=== PATIENT | female | born 1975 | race African-American/Black ===

== ENCOUNTER 2022-01-14 19:23 | Emergency (ER) | payer BC, SELFPAY ==
[2022-01-14 19:28] VITALS: BP 136/70; PULSE 62; RESP 13; TEMP 36.1; O2SAT 98; BMI 38.0
--- NOTE | 2022-01-14 19:38 | EKG12_ITS ---
Test Reason : CP Blood Pressure : / mmHG Vent. Rate : 060 BPM Atrial Rate : 060 BPM P-R Int : 226 ms QRS Dur : 090 ms QT Int : 414 ms P-R-T Axes : 029 -03 019 degrees QTc Int : 414 ms Sinus rhythm with 1st degree A-V block Otherwise normal ECG Confirmed by LEON OLIVAREZ, JAKE ([id number]), web content editor MARIALUISA MEREDITH ([id number]) on 01/16/2022 9:42:03 AM Referred By: RU Confirmed By:JAKE QUINTERO MD
--- NOTE | 2022-01-14 19:41 | ED.VIS.CHEST ---
HPI History of Present Illness Chief Complaint: Chest Pain Informant: patient Onset/Context/Timing Onset: Hours (7-8) Activity at onset: gradual and onset Timing: Continuous Quality: Positive for - (Discomfort) Location: Left Chest (Occasionally radiating up the left side of neck and jaw but not currently doing so) Current Severity: Mild Maximum Severity: Moderate Worsened By: Nothing Relieved By: Nothing Associated Symptoms: Positive for Nausea and Dyspnea (mild); Negative for Vomiting, Diaphoresis, Cough, Fever, Lightheadedness and Palpitations Narrative Narrative: Patient with chest discomfort constantly for the past 7 or 8 hours, she states it is mild and left-sided has R10 describing it but it is discomfort nonpleuritic, she denies any palpitations or near syncope or syncope or leg pain or swelling, no history of DVT or PE. She never had this before and was concerned about it because of that and presents for evaluation. No history of heart disease. CVD Risk Factors: Positive for Hypertension; Negative for Diabetes, Hypercholesterolemia, Family History 1' </=55 and Smoking PE Risk Factors: Negative for Recent Travel/Surgery, Recent Immobilization, Prior DVT or PE, Cancer and OCP + Smoking + >/=35 [facility] Medical History Asthma Hypertension Hypothyroidism Sleep apnea Home Medications ergocalciferol (vitamin D2) [Vitamin D] 1 tab PO DAILY 11/07/16 [History Last Taken Unknown] levothyroxine 125 mcg PO DAILY 11/07/16 [History Last Taken Unknown] loratadine [Claritin] 1 tab PO DAILY PRN 11/07/16 [History Last Taken Unknown] multivitamin [Multiple Vitamins] 1 tab PO DAILY 11/07/16 [History Last Taken Unknown] hydrochlorothiazide 25 mg PO DAILY 01/14/22 [History Last Taken Unknown] pantoprazole 40 mg PO DAILY #30 tab 01/14/22 [Rx Last Taken Unknown] Allergy/AdvReac Type Severity Reaction Status Date / Time No Known Allergies Allergy Verified 01/14/22 19:25 Social History Smoking Status: Never smoker ROS ROS ED Constitutional Constitutional ED: Denies chills or fever(s) Eyes Eyes: Denies change in vision or diplopia ENT ENT ED: Denies rhinorrhea or sore throat Cardiovascular Cardiovascular: Reports as per HPI and chest pain; Denies palpitations Respiratory/Chest Respiratory/Chest: Reports dyspnea; Denies cough Gastrointestinal Gastrointestinal: Denies abdominal pain, diarrhea, nausea or vomiting Genitourinary Genitourinary ED: Denies dysuria or hematuria Musculoskeletal Musculoskeletal: Denies back pain or neck pain Integumentary Denies abscess or rash Neurologic Neurologic: Denies headache(s), paresthesias or weakness Psychiatric Psychiatric: Denies anxiety or suicidal thoughts EXAM Physical Exam Const Vital Signs: 01/14/22 19:28 01/14/22 19:35 01/14/22 19:46 Temperature 97 F L Temperature Source Temporal Pulse Rate 62 Respiratory Rate 13 Respiratory Effort Normal Non-Labored Respiratory Pattern Normal Blood Pressure 136/70 H Blood Pressure Mean 92 Pulse Ox 98 Oxygen Delivery Method Room Air Room Air 01/14/22 20:43 Temperature Temperature Source Pulse Rate 61 Respiratory Rate 17 Respiratory Effort Respiratory Pattern Blood Pressure 129/80 H Blood Pressure Mean 96 Pulse Ox 99 Oxygen Delivery Method Room Air Positive well nourished and well developed General Appearance ED: well developed and NAD HEENT Reports moist mucous membranes normocephalic and atraumatic Eyes PERRL and EOMs intact bilaterally Neck full ROM and supple Chest Wall inspection of chest normal Chest: Negative for tenderness Resp normal respiratory effort and clear to auscultation bilaterally Cardio regular rate, regular rhythm, no murmurs and no JVD Rate: Negative for tachycardic GI non-tender and non-distended Auscultation: normoactive bowel sounds Palpation: soft Back/Spine no CVA tenderness General Back: other FROM Extremity normal to inspection, no calf tenderness and no pedal edema General Extremety ED: Negative for edema, pulses abnormal or tenderness General Extremity: Negative for edema or pulses abnormal Neuro oriented x3, CN's II-XII intact bilaterally and no sensory deficits noted Sensorium / Orientation: awake and alert Motor Exam: strength 5/5 throughout Skin no rashes or lesions noted and no wounds Heart Score History: Moderately Suspicious ECG: Normal Age: >45 - <65 years Risk Factors: 1 or 2 Risk Factors Troponin: </= Normal Limit Score: 3 MDM MDM MDM Narrative Medical decision making narrative: PERC score is 0, chest x-ray 1 view my interpretation is negative for anything acute, radiology in agreement, EKG normal, troponin negative after days and weeks of pain/discomfort, and her symptoms resolved with a GI cocktail. Reassured the patient, this is likely noncardiac, she is comfortable going home and following up on a PPI for the next month empirically. Lab Data Attestation: I reviewed the patient's lab results. Labs: Laboratory Results - last 24 hr 01/14/22 01/14/22 19:45 19:45 WBC 4.1 L RBC 4.46 Hgb 13.7 Hct 40.0 MCV 89.7 MCH 30.7 MCHC 34.3 RDW Std Deviation 42.6 RDW Coeff of Spenser 12.9 Plt Count 259 MPV 10.5 Immature Gran % (Auto) 0.200 Neut % (Auto) 56.8 Lymph % (Auto) 33.9 Woodruff % (Auto) 6.1 Eos % (Auto) 2.0 Baso % (Auto) 1.0 Absolute Neuts (auto) 2.3 Absolute Lymphs (auto) 1.39 Nucleated RBC % 0 Sodium 138 Potassium 3.9 Chloride 104 Carbon Dioxide 31.0 Anion Gap 3 L BUN 13 Creatinine 0.97 Estim Creat Clear Calc 50.95 Est GFR (MDRD) Af Amer 78 Est GFR (MDRD) Non-Af 65 BUN/Creatinine Ratio 13.4 Glucose 105 Calcium 9.5 Troponin I High Sens < 3 L Radiography Diagnostic Testing: Clinical Impression(s) from Imaging Studies Chest X-Ray 01/14/22 19:53 IMPRESSION: 1. No radiographic evidence of acute cardiopulmonary disease. Electronically Signed: Abimael Strauss DO at 20:05 EDT , EKG Initial EKG: Attestation: I personally reviewed and interpreted this EKG as follows: Interpretation: Sinus Rhythm, No Acute Injury Pattern and AV Block (First-degree) Prior EKG tracings: available for review Prior: Unchanged Discharge Plan Triage Chief Complaint: Chest Pain ED Provider: Brendon Kohler Dx/Rx/DC Orders Clinical Impression: Chest pain, non-cardiac Instructions: ED Chest Pain, Noncardiac Prescriptions: New pantoprazole 40 mg tablet,delayed release (DR/EC) 40 mg PO DAILY Qty: 30 RF: 0 No Action multivitamin [Multiple Vitamins] 1 EACH tablet 1 tab PO DAILY RF: 0 levothyroxine 125 MCG tablet 125 mcg PO DAILY RF: 0 ergocalciferol (vitamin D2) [Vitamin D2] 50,000 UNIT capsule 1 tab PO DAILY RF: 0 loratadine [Allergy Relief (loratadine)] 10 MG tablet 1 tab PO DAILY PRN (Reason: ALLERGIES) RF: 0 hydrochlorothiazide 25 mg tablet 25 mg PO DAILY RF: 0 Primary Care Provider: Lisette Camacho Referrals: Lisette Camacho MD [Primary Care Provider] - 1 Week if not improving Disposition Disposition: Home, Self Care
[2022-01-14] MEDS: Ondansetron 4 MG/2 ML Vial IV (19:50)
[2022-01-14 19:52] LABS: Absolute Lymphocyte Count 1.39 X10^3/uL (0.83-4.51); Absolute Neutrophil Count 2.3 X10^3/uL (2.0-7.7); Basophil# 0.04 X10^3/uL; Eosinophil# 0.08 X10^3/uL; Hemoglobin 13.7 g/dL (12.0-15.0); Lymphocyte # 1.39 X10^3/ul (0.83-4.51); Lymphocyte % 33.9 % (19-41); Mean Corp Hgb Conc 34.3 g/dL (32-36); Mean Corpuscular Hgb 30.7 pg (27.0-32.0); Mean Corpuscular Volume 89.7 fL (81-99); Mean Platelet Vol. 10.5 fl (6.2-12.0); Monocyte# 0.25 X10^3/uL; Monocyte% 6.1 % (0-10); NRBC Flagged by Analyzer 0 % (0-5); Neutrophil # 2.33 X10^3/uL (2.7-7.7); Neutrophil % 56.8 % (47-70); Platelet Count 259 K/mm3 (150-450); RBC Distribution Width CV 12.9 % (11.6-14.6); RBC Distribution Width SD 42.6 fl (35.1-43.9); Red Blood Count 4.46 M/mm3 (4.2-5.4); White Blood Count 4.1 K/mm3 (4.4-11.0)
--- NOTE | 2022-01-14 19:53 | RAD_ITS ---
INDICATION: chest pain EXAMINATION/TECHNIQUE: X-RAY - XR Chest 1 View COMPARISON: Chest x-ray 11/07/2016. FINDINGS: LINES/DEVICES: None. LUNGS: Symmetric normal lung volumes. No airspace opacity or abnormal interstitial pattern. No nodule or mass. No pleural effusion or pneumothorax. MEDIASTINUM AND CARDIOVASCULAR STRUCTURES: Normal size and contour of the cardiomediastinal silhouette. No evidence of pulmonary vascular congestion. BONES AND SOFT TISSUES: No abnormality within limits of the exam. RAD/Chest 1 View (Portable) IMPRESSION: 1. No radiographic evidence of acute cardiopulmonary disease. Electronically Signed: Abimael Strauss DO at 20:05 EDT ,
[2022-01-14] MEDS: Mag Hydrox/Al Hydrox/Simeth 30 ML UDC PO (20:13)
[2022-01-14 20:18] LABS: Anion Gap 3 (5-15); BUN 13 mg/dL (7-18); BUN/Creat Ratio 13.4 RATIO (10-20); Calcium,Total 9.5 mg/dL (8.5-10.1); Chloride 104 mmol/L (98-107); Creatinine, Serum 0.97 mg/dL (0.55-1.02); EST Glomerular Filtration Rate 65 mL/min (>60); Est Glom Filt Rate - Afr Amer 78 mL/min (>60); Estimated Creatinine Clearance 50.95 ml/min; Glucose 105 mg/dL (74-106); Potassium 3.9 mmol/L (3.5-5.1); Sodium Level 138 mmol/L (136-145); Troponin-I HS < 3 pg/mL (3.0-54.0)
[2022-01-14 20:43] VITALS: BP 129/80; PULSE 61; RESP 17; O2SAT 99
[2022-01-14 20:52] VITALS: BP 123/74; PULSE 61; RESP 16; O2SAT 99
[2022-01-14] MEDS: Pantoprazole Sodium 40 MG Tablet PO (20:55)
== END 2022-01-14 20:58 | disposition home or self-care (01) ==
PROVIDERS: Emergency Provider Emergency Medicine; PCP Internal Medicine; Visit Provider Emergency Medicine
DX: R07.89 Other chest pain (principal); I10 Essential (primary) hypertension; R06.00 Dyspnea, unspecified; R11.0 Nausea; E03.9 Hypothyroidism, unspecified; J45.909 Unspecified asthma, uncomplicated; G47.30 Sleep apnea, unspecified; Z79.890 Hormone replacement therapy; Z79.899 Other long term (current) drug therapy
CPT/HCPCS: 71045; 80048; 84484; 85025; 93005; 96374; 99285; A4216; J2405

== ENCOUNTER → 2023-05-03 | Outpatient (CLI) | payer BC, SELFPAY ==
[2023-05-03 13:29] LABS: D-Dimer Quantitative (DVT/PE) < 0.27 FEU/ug/m (0.27-0.49)
== END | disposition home or self-care (01) ==
LOC: LABSPEC 12:25
PROVIDERS: PCP Internal Medicine; Referring Provider Nurse Practitioner; Visit Provider Nurse Practitioner
DX: M79.662 Pain in left lower leg (principal)
CPT/HCPCS: 85379